=== PATIENT | male | born 1990 | race Caucasian/White ===

== ENCOUNTER 2020-04-13 19:04 | Emergency (ER) | payer OTHER ==
[~2020-04-13] VITALS: Ht 175.3 cm; Wt 90.7 kg
[2020-04-13 19:09] VITALS: Ht 175.3 cm; Wt 90.7 kg
[2020-04-13 19:37] VITALS: BP 126/96
== END 2020-04-13 19:37 | disposition other institution (70) ==
LOC: ED 19:04
DX: Z02.89 Encounter for other administrative examinations (principal)